=== PATIENT | male | born 1965 | race Caucasian/White ===

== ENCOUNTER 2020-06-25 11:13 | Emergency (ER) | payer BC ==
--- NOTE | 2020-06-25 11:41 | PDOC ---
Rapid Medical Evaluation Chief Complaint: Injury Time Seen by Provider: 06/25/20 11:38 Medical Evaluation: 06/25/20 11:40 I performed a brief in-person evaluation of this patient. Low back pain with RLE pain after a fall at [employer]. Had back surgery 4 years ago. Pertinent physical exam findings: speaking in full sentences, states he can't walk, in a wheel chair I have ordered the following: lumbar xr Patient to proceed to ED for further evaluation. Discharge Disposition - Diagnosis Low back pain - Referrals - Patient Instructions - Post Discharge Activity
[2020-06-25 11:47] VITALS: BP 138/83; PULSE 79; TEMP 98; BMI 28.4
--- OUTSIDE RECORDS SUMMARY | 2020-06-25 11:49 | XMS ---
:1965 Author Organization [facility] Support Name Relationship Address Phone SE Unavailable Unavailable Unavailable BRIDGETTE SHER [address] [facility] [phone] [place] [address] BRENT, AEID Unavailable Unavailable Re-disclosure Warning The records that you are about to access may contain information from federally- assisted alcohol or drug abuse programs. If such information is present, then the following federally mandated warning applies: This information has been disclosed to you from records protected by federal confidentiality rules (42 CFR part 2). The federal rules prohibit you from making any further disclosure of this information unless further disclosure is expressly permitted by the written consent of the person to whom it pertains or as otherwise permitted by 42 CFR part 2. A general authorization for the release of medical or other information is NOT sufficient for this purpose. The Federal rules restrict any use of the information to criminally investigate or prosecute any alcohol or drug abuse patient.The records that you are about to access may contain highly sensitive health information, the redisclosure of which is protected by Article 27-F of the [facility] Public Health law. If you continue you may haveaccess to information: Regarding HIV / AIDS; Provided by facilities licensed or operated by the [facility] Office of Mental Health; or Provided by the [facility] Office for People With Developmental Disabilities. If such information is present, then the following [facility] mandated warning applies: This information has been disclosed to you from confidential records which are protected by state law. State law prohibits you from making any further disclosure of this information without the specific written consent of the person to whom it pertains, or as otherwise permitted by law. Any unauthorized further disclosure in violation of state law may result in a fine or mcfp sentence or both. A general authorization for the release of medical or other information is NOT sufficient authorization for further disclosure. Insurance Providers Payer name Policy type Policy ID Covered Covered constitution party's Policy P darwin / Coverage constitution party ID relationship to [employer] orm[employer] type falcon BC PPO [id number] [place] [id number] Blue Cross BC [id number] Blue Shield 02 Results ID Date Data Source [id number] 05/08/2020 12:00:00 AM EDT [facility] Name Value Range Interpretation Code Description Data Lou rce(s) Supporting Document(s ) [id number] [facility] This lab was ordered by GENARO ANNE ( [address] [place] [address]) ([id number]) and reported by [employer] ID Date Data Source [id number] 04/28/2020 11:12:00 AM EDT [facility] Name Value Range Interpretation Code Description Data Lou rce(s) Supporting Document(s ) SARS-COV-2 [facility] QL JAMEL+PROBE This lab was ordered by JULIA wallis nd reported by [facility]. Procedure
[2020-06-25] MEDS ORDERED: KETOROLAC TROMETHAMINE 60 MG/2 ML VIAL IM ONE (12:19)
[2020-06-25] MEDS ORDERED: KETOROLAC TROMETHAMINE 60 MG/2 ML VIAL ONE (12:22)
--- NOTE | 2020-06-25 12:50 | PDOC ---
History of Present Illness - General Chief Complaint: Injury Stated Complaint: FALL Time Seen by Provider: 06/25/20 11:38 - History of Present Illness Initial Comments: 06/25/20 12:46 55-year-old male past medical history of hypertension also takes daily aspirin presents for evaluation of low back pain with left leg radiculopathy after a fall in [employer] today. He also complains of left hand pain. He did not hit his head denies post injury nausea vomiting or visual changes only has lower back pain right leg radicular symptoms. Past History - Medical History Allergies/Adverse Reactions: Allergies Allergy/AdvReac Type Severity Reaction Status Date / Time No Known Allergies Allergy Unverified 06/25/20 11:43 Home Medications: Ambulatory Orders Cyclobenzaprine HCl [Flexeril 10 mg] 10 mg PO HS PRN #10 tablet 06/25/20 CVA: No COPD: No - Psycho-Social/Smoking History Smoking History: Current every day smoker Have you smoked in the past 12 months: Yes Number of Cigarettes Smoked Daily: 10 Information on smoking cessation initiated: No - Substance Abuse Hx (Audit-C & DAST Scrn) How often the patient has a drink containing alcohol: Never Score: In Men: 4 or > Positive; In Women: 3 or > Positive: 0 Screen Result (Pos requires Nsg. Audit-10AR): Negative In the last yr the pt used illegal drug/Rx for NonMed reason: No Score: Yes response is considered Positive: 0 Screen Result (Positive result requires Nsg. DAST-10): Negative Review of Systems - Review of Systems Musculoskeletal: Yes: See HPI, Back Pain, Joint Pain *Physical Exam - Vital Signs Last Vital Signs Temp Pulse Resp BP Pulse Ox 98.0 F 79 18 138/83 97 06/25/20 11:39 06/25/20 11:39 06/25/20 11:39 06/25/20 11:39 06/25/20 11:39 - Physical Exam 06/25/20 12:47 Lumbar spine skin color temperature normal range of motion is slightly d ecreased. No midline tenderness. Moderate bilateral paralumbar musculature spasm and tenderness 5 out of 5 strength bilateral lower extremities without gross sensorimotor deficits thighs and calves are soft and nontender neurovascular intact Left hand superficial abrasion, 4-5 drawing in hand strength no tenderness in the hand wrist upper extremity elbow forearm or shoulder. Neurovascular intact ED Treatment Course - Medications Given in the ED: ED Medications Discontinued Medications Generic Name Dose Route Start Last Admin Trade Name Gabi PRN Reason Stop Dose Admin Ketorolac Tromethamine 60 mg 06/25/20 12:19 06/25/20 12:23 Toradol Injection - IM 06/25/20 12:20 60 mg ONCE ONE Administration Medical Decision Making - Medical Decision Making 06/25/20 12:48 Tylenol for pain Flexeril sent to pharmacy follow-up with spine surgery X-rays taken show a L4-L5 fusion vertebral body screws appear to be superiorly angulated in the L5 vertebral body no disruption in the cortex or endplate will have patient referred to Spine surgery. I have reviewed the pathophysiology with the patient. They are in agreement with the treatment plan all questions were answered to their satisfaction. Understanding for follow-up without fail was also conveyed to the patient. Again they are in agreement. Discharge - Discharge Information Problems reviewed: Yes Clinical Impression/Diagnosis: Low back pain, Abrasion of left hand, Lumbar radiculopathy Condition: Stable Disposition: HOME - Admission No - Follow up/Referral Referrals: Mathew Montilla MD, [facility] [Staff Physician] - - Patient Discharge Instructions Additional Instructions: Please take Flexeril as directed. You may take Tylenol for pain as directed. Avoid anti-inflammatories such as Advil Motrin Aleve and ibuprofen. Return to the emergency room for worsening symptoms and without fail follow-up with neurosurgery in 1 to 2 days for further evaluation and treatment options. Return to the emergency room at any time for worsening problems. - Post Discharge Activity
== END 2020-06-25 13:01 | disposition home or self-care (01) ==
LOC: JERFT 11:13
DX: M79.604 Pain in right leg (principal)
CPT/HCPCS: 72100-TC-FY; 99282-25